=== PATIENT | male | born 1980 | race Two or more races ===

== ENCOUNTER 2017-12-27 14:28 | Emergency (ER) | payer OTHER ==
[~2017-12-27] VITALS: Ht 170.2 cm; Wt 107.4 kg
[2017-12-27 14:31] VITALS: BP 144/95
== END 2017-12-27 15:38 | disposition home or self-care (01) ==
LOC: ED 15:32
DX: G89.29 Other chronic pain (principal); M25.511 Pain in right shoulder; M75.91 Shoulder lesion, unspecified, right shoulder
CPT/HCPCS: 99284

== ENCOUNTER 2020-02-05 12:44 | Emergency (ER) | payer MEDICAID ==
[~2020-02-05] VITALS: Ht 170.2 cm; Wt 119.0 kg
--- NOTE | 2020-02-05 14:18 | NUR ---
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
--- NOTE | 2020-02-05 15:04 | NUR ---
PT SITTING IN BED, ON PHONE, NO SIGNS OF DISTRESS. WILL CONTINUE TO MONITOR.
--- NOTE | 2020-02-05 15:33 | NUR ---
PT AMBULATORY TO IMAGING AND BACK. WILL CONTINUE TO MONITOR.
[2020-02-05 15:43] LABS: BASOPHILS # (AUTO) 0.07 x10^3/uL (0-0.1); BASOPHILS % (AUTO) 1 % (0-1); EOSINOPHILS # (AUTO) 0.11 x10^3/uL (0-0.4); EOSINOPHILS % (AUTO) 1 % (1-7); LYMPHOCYTES # (AUTO) 2.11 x10^3/uL (1-3.4); LYMPHOCYTES % (AUTO) 19 % (22-44); MD NO; MEAN CORPUSCULAR HEMOGLOBIN 31.1 pg (27.5-34.5); MEAN CORPUSCULAR HGB CONC 33.7 g/dL (33.2-36.2); MEAN CORPUSCULAR VOLUME 92.2 fL (81-97); MONOCYTES # (AUTO) 0.73 x10^3/uL (0.2-0.8); MONOCYTES % (AUTO) 7 % (2-9); NEUTROPHILS # (AUTO) 7.97 x10^3/uL (1.8-6.8); NEUTROPHILS % (AUTO) 73 % (42-75); PLATELET COUNT 417 x10^3/uL (130-400); RED BLOOD COUNT 4.75 x10^6/uL (4.38-5.82)
[2020-02-05 15:56] LABS: ALANINE AMINOTRANSFERASE 21 U/L (12-78); ALBUMIN 3.4 g/dL (3.4-5.0); ANION GAP 1 mmol/L (5-15); CALCIUM 9.2 mg/dL (8.5-10.1); CHLORIDE 110 mmol/L (98-107); CREATININE 0.85 mg/dL (0.7-1.3)
[2020-02-05 16:06] LABS: ALKALINE PHOSPHATASE 62 U/L (45-117); BILIRUBIN,TOTAL 0.4 mg/dL (0.2-1.0); CREATINE KINASE, TOTAL 79 U/L (39-308); TOTAL PROTEIN 7.7 g/dL (6.4-8.2)
--- NOTE | 2020-02-05 16:12 | NUR ---
PT SITTING IN BED, WATCHING TV. NO SIGNS OF DISTRESS, CALL LIGHT WITHIN REACH. WILL CONTINUE TO MONITOR.
--- NOTE | 2020-02-05 17:12 | NUR ---
LAB TO BEDSIDE, PT TOLERATING WELL, CONDITION UNCHANGED.
[2020-02-05 17:16] VITALS: BP 134/90
== END 2020-02-05 17:18 | disposition home or self-care (01) ==
LOC: ED 15:07
DX: R61 Generalized hyperhidrosis (principal); I10 Essential (primary) hypertension
CPT/HCPCS: 36415; 71046; 80053; 82550; 83735; 84443; 85025; 87040; 99284

== ENCOUNTER 2020-04-18 12:47 | Emergency (ER) | payer MEDICAID ==
[~2020-04-18] VITALS: Ht 170.2 cm; Wt 122.0 kg
[2020-04-18 12:49] VITALS: BP 149/100
== END 2020-04-18 13:59 | disposition home or self-care (01) ==
LOC: ED 13:20
DX: L72.3 Sebaceous cyst (principal); I10 Essential (primary) hypertension
CPT/HCPCS: 99283